=== PATIENT | female | born 1965 | race Hispanic/Latino ===

== ENCOUNTER 2020-04-28 22:09 | Emergency (ER) | payer OTHER ==
[2020-04-28 23:15] LABS: #Basophils 0.1 thou/uL (0.0-0.2); #Eosinphils 0.1 thou/uL (0.0-0.7); #Lymphocytes 2.7 thou/uL (1.20-3.40); #Neutrophils 6.8 thou/uL (1.40-6.50); %Basophils 0.5 % (0.0-1.0); %Lymphocytes 25.5 % (21.0-51.0); %Monocytes 9.7 % (0.0-10.0); %Neutrophils 63.4 % (42.0-75.0); Hemoglobin 14.8 g/dL (12.0-16.0); Mean Corpuscular HGB CONC 33.7 g/dL (32.0-36.0); Mean Corpuscular Hemoglobin 30.3 pg (27.0-31.0); Mean Corpuscular Volume 89.8 fL (78.0-98.0); Mean Platelet Volume 8.8 fL (7.4-10.4); Platelet Count 231 thou/uL (130-400); RBC Distribution Width 12.3 % (11.5-14.5); White Blood Cell (WBC) Count 10.8 thou/uL (4.8-10.8)
[2020-04-28 23:32] LABS: ALT (SGPT) 54 U/L (8-55); AST (SGOT) 31 U/L (5-34); Albumin 3.9 g/dL (3.5-5.0); Alkaline Phosphatase 169 U/L (40-110); Anion Gap 14 mmol/L (10-20); BUN (Urea Nitrogen) 18 mg/dL (9.8-20.1); Bilirubin, Total 0.3 mg/dL (0.2-1.2); Calc. Creatinine Clearance 0 mL/min (70-130); Calcium 8.8 mg/dL (7.8-10.44); Carbon Dioxide 26 mmol/L (22-29); Chloride 103 mmol/L (98-107); Globulin 3.8 g/dL (2.4-3.5); Glucose 120 mg/dL (70-105); Lipase 25 U/L (8-78); Potassium 4.6 mmol/L (3.5-5.1); Protein, Total 7.7 g/dL (6.0-8.3); Sodium 138 mmol/L (136-145)
[2020-04-29] MEDS ORDERED: Lidocaine Viscous Sol 2% 15 ml UD Cup ONE (01:12)
[2020-04-29] MEDS ORDERED: Mag-Al 1200 mg/1200 mg/30 ML UDCUP ONE (01:12)
[2020-04-29 01:15] LABS: Bacteria/HPF None Seen HPF (None Seen); Bilirubin Negative (Negative); Blood, Urine Negative (Negative); Calcium Oxalate Crystals 4+ HPF (None Seen); Clarity Turbid (Clear); Glucose, Urine (Dipstick) Normal (Negative); Ketone, Urine Negative (Negative); Leukocyte Negative Leu/uL (Negative); Mucous/LPF 1+ LPF (<2+); Nitrite Negative (Negative); Protein, Urine (Dipstick) 30 mg/dL (Neg-Trace); RBC/HPF 0-3 HPF (0-3); Specific Gravity, Urine 1.034 (1.002-1.036); WBC/HPF 0-3 HPF (0-3); pH, Urine 6.5 (5.0-9.0)
[2020-04-29] MEDS ORDERED: Pantoprazole 40 MG VIAL ONE (02:21)
[2020-04-29] MEDS ORDERED: Sucralfate 1 GM/10 ML UDCUP ONE (03:28)
--- NOTE | 2020-04-29 08:03 | CT ---
PRELIMINARY REPORT/DIRECT RADIOLOGY/EMERGENCY AFTER HOURS PROCEDURE: EXAM: CT Abdomen and Pelvis with Intravenous Contrast CLINICAL HISTORY: The patient reports that over the past several months she has had intermittent pain in her epigastric and left upper quadrant. She was seen by her primary care provider for this and states that she also saw GI. She reports associated nausea and vomiting today. She states that the pa in occasionally radiates through to her back. TECHNIQUE: Axial computed tomography images of the abdomen and pelvis with intravenous contrast. CONTRAST: With; ISOVUE 370,80mL COMPARISON: None provided. FINDINGS: LUNG BASES: No basilar airspace consolidation or pleural effusion. LIVER: Diffuse decreased parenchymal attenuation of the liver GALLBLADDER AND BILE DUCTS: Surgically absent. No ductal dilation. PANCREAS: Unremarkable. SPLEEN: Unremarkable. ADRENAL GLANDS: Unremarkable. KIDNEYS, URETERS, AND BLADDER: Unremarkable. No hydronephrosis or nephrolithiasis. No ureteral or ketty dder calculi. STOMACH AND BOWEL: No obstruction. No wall thickening. No CT evidence of colitis or acute diverticuli tis. APPENDIX: No CT evidence for appendicitis. PERITONEUM: No free fluid. No free air. LYMPH NODES: No lymphadenopathy. REPRODUCTIVE: Uterus is surgically absent. No suspicious adnexal mass. VASCULATURE: No aortic aneurysm. BONES: No fracture or suspicious osseous abnormality. ABDOMINAL WALL AND SOFT TISSUES: Unremarkable. IMPRESSION: 1. No acute intra-abdominal or pelvic abnormality. 2. Hepatic steatosis. ELECTRONICALLY SIGNED BY: Spencer Tucker DO Apr 29, 2020 3:03:04 AM [employer]LE[employer] ADJUSTER FINAL REPORT CT ABDOMEN AND PELVIS WITH CONTRAST: History: Abdominal pain. Comparison: Abdomen pelvis CT March 2020. Findings/impression: Concordant with the initial report. Transcribed Date/Time: 04/29/2020 8:13 AM
[2020-04-29] MEDS ORDERED: Iopamidol-370 76% 500 ML 1 ML ONE (10:54)
== END 2020-04-29 03:36 | disposition home or self-care (01) ==
LOC: ERS 22:09
DX: R10.13 Epigastric pain (principal); J45.909 Unspecified asthma, uncomplicated; G47.30 Sleep apnea, unspecified; Z79.899 Other long term (current) drug therapy
CPT/HCPCS: 36415; 74177; 80053; 81003; 81015; 83690; 85025; 96374; C9113; Q9967

== ENCOUNTER 2020-06-08 13:15 | Inpatient (IN) | payer OTHER ==
[2020-06-08] MEDS ORDERED: Fentanyl 100 MCG/2 ML VIAL ONE (13:18)
[2020-06-08] MEDS ORDERED: Promethazine HCl 25 MG/ML VIAL IM PRN (13:46)
[2020-06-08] MEDS ORDERED: Promethazine 25 MG TAB PO PRN (13:46)
[2020-06-08] MEDS ORDERED: Milk Of Magnesia 30 ML UDCUP PO PRN (13:46)
[2020-06-08] MEDS ORDERED: diphenhydrAMINE 50 MG CAP PO PRN (13:46)
[2020-06-08] MEDS ORDERED: Docusate 100 MG CAP PO PRN (13:46)
[2020-06-08 13:52] LABS: #Basophils 0.1 thou/uL (0.0-0.2); #Eosinphils 0.1 thou/uL (0.0-0.7); #Lymphocytes 2.6 thou/uL (1.20-3.40); #Monocytes 0.6 thou/uL (0.11-0.59); #Neutrophils 3.2 thou/uL (1.40-6.50); %Basophils 1.2 % (0.0-1.0); %Eosinophils 2.1 % (0.0-10.0); %Lymphocytes 38.8 % (21.0-51.0); %Monocytes 9.5 % (0.0-10.0); %Neutrophils 48.4 % (42.0-75.0); Hemoglobin 13.6 g/dL (12.0-16.0); Mean Corpuscular HGB CONC 33.5 g/dL (32.0-36.0); Mean Corpuscular Hemoglobin 30.6 pg (27.0-31.0); Mean Corpuscular Volume 91.4 fL (78.0-98.0); Mean Platelet Volume 8.1 fL (7.4-10.4); Platelet Count 171 thou/uL (130-400); RBC Distribution Width 12.5 % (11.5-14.5); Red Blood Cell (RBC) Count 4.43 mill/uL (4.20-5.40); White Blood Cell (WBC) Count 6.6 thou/uL (4.8-10.8)
[2020-06-08] MEDS ORDERED: Iopamidol-370 76% 500 ML 1 ML ONE (13:53)
[2020-06-08] MEDS ORDERED: levETIRAcetam 500 MG/100 ML PREMIX BAG ONE ×2 (13:58)
[2020-06-08 14:00] LABS: Prothrombin Time 13.5 sec (12.0-14.7)
[2020-06-08] MEDS ORDERED: niMODipine 30 MG CAP PO SCH (14:00)
[2020-06-08] MEDS ORDERED: Ondansetron PF 4 MG/2 ML Vial ONE ×2 (14:05→18:23)
[2020-06-08 14:06] LABS: ALT (SGPT) 28 U/L (8-55); AST (SGOT) 22 U/L (5-34); Albumin 3.6 g/dL (3.5-5.0); Alkaline Phosphatase 99 U/L (40-110); Anion Gap 12 mmol/L (10-20); BUN (Urea Nitrogen) 15 mg/dL (9.8-20.1); Bilirubin, Total 0.3 mg/dL (0.2-1.2); CK (CPK) 46 U/L (29-168); Calc. Creatinine Clearance 0 mL/min (70-130); Calcium 8.5 mg/dL (7.8-10.44); Carbon Dioxide 25 mmol/L (22-29); Chloride 102 mmol/L (98-107); Globulin 3.2 g/dL (2.4-3.5); Glucose 85 mg/dL (70-105); Protein, Total 6.8 g/dL (6.0-8.3); Sodium 135 mmol/L (136-145)
[2020-06-08 14:37] LABS: SARS-CoV-2 NAA Rapid Test Not Detected (NotDetected)
[2020-06-08] MEDS ORDERED: Promethazine HCl 25 MG/ML VIAL ONE (15:24)
[2020-06-08] MEDS ORDERED: Famotidine/PF 20 mg/2ml Vial ONE (19:51)
[2020-06-08] MEDS: Sodium Chloride 0.9% 1,000 ML IV SCH (20:00)
[2020-06-08] MEDS ORDERED: Acetaminophen 325 MG TAB ONE (20:10)
[2020-06-08] MEDS: Famotidine/PF 20 mg/2ml Vial SLOW IVP SCH (20:23)
[2020-06-08] MEDS: niMODipine 30 MG CAP PO SCH ×2 (20:23→21:27)
[2020-06-08] MEDS: Acetaminophen 325 MG TAB PO PRN (20:24)
[2020-06-08] MEDS: levETIRAcetam 500 MG TAB PO SCH (20:24)
[2020-06-08] MEDS ORDERED: CEFAZOLIN 2 GM in Premix Bag 1 BAG IVPB SCH (20:45)
[2020-06-09] MEDS ORDERED: Ondansetron PF 4 MG/2 ML Vial ONE
[2020-06-09] MEDS: Ondansetron PF 4 MG/2 ML Vial IVP PRN ×4 (00:49→21:06)
[2020-06-09] MEDS: niMODipine 30 MG CAP PO SCH ×6 (02:11→21:06)
[2020-06-09] MEDS: Acetaminophen 325 MG TAB PO PRN (02:11)
[2020-06-09] MEDS: hydrALAZINE 20 MG/ML VIAL SLOW IVP PRN (02:30)
[2020-06-09] MEDS: Morphine 4 MG/ML VIAL SLOW IVP PRN ×6 (04:12→21:06)
[2020-06-09 04:33] LABS: Anion Gap 15 mmol/L (10-20); BUN (Urea Nitrogen) 9 mg/dL (9.8-20.1); Calc. Creatinine Clearance 160 mL/min (70-130); Calcium 8.9 mg/dL (7.8-10.44); Carbon Dioxide 24 mmol/L (22-29); Chloride 101 mmol/L (98-107); Glucose 115 mg/dL (70-105); Potassium 3.9 mmol/L (3.5-5.1); Sodium 136 mmol/L (136-145)
[2020-06-09] MEDS: Sodium Chloride 0.9% 1,000 ML IV SCH ×2 (05:04→17:17)
[2020-06-09 05:24] LABS: #Lymphocytes 1.5 thou/uL (1.20-3.40); #Monocytes 0.6 thou/uL (0.11-0.59); #Neutrophils 7.3 thou/uL (1.40-6.50); %Basophils 0.2 % (0.0-1.0); %Eosinophils 0.3 % (0.0-10.0); %Lymphocytes 16.1 % (21.0-51.0); %Monocytes 5.8 % (0.0-10.0); %Neutrophils 77.5 % (42.0-75.0); Hemoglobin 13.7 g/dL (12.0-16.0); Mean Corpuscular HGB CONC 32.7 g/dL (32.0-36.0); Mean Corpuscular Hemoglobin 29.3 pg (27.0-31.0); Mean Corpuscular Volume 89.6 fL (78.0-98.0); Mean Platelet Volume 7.9 fL (7.4-10.4); Platelet Count 189 thou/uL (130-400); RBC Distribution Width 12.4 % (11.5-14.5); Red Blood Cell (RBC) Count 4.68 mill/uL (4.20-5.40); White Blood Cell (WBC) Count 9.4 thou/uL (4.8-10.8)
[2020-06-09 05:30] LABS: PTT 32.7 sec (22.9-36.1); Prothrombin Time 13.4 sec (12.0-14.7)
[2020-06-09] MEDS: Famotidine/PF 20 mg/2ml Vial SLOW IVP SCH ×2 (07:59→21:06)
[2020-06-09] MEDS: levETIRAcetam 500 MG TAB PO SCH ×2 (08:09→21:06)
[2020-06-09] MEDS ORDERED: Prevnar 13-Val Conj/PF 0.5 ML SYRINGE IM ONE (09:00)
[2020-06-09] MEDS: Promethazine HCl 25 MG/ML VIAL IM/IV PRN ×2 (15:25→23:30)
[2020-06-10] MEDS: Morphine 4 MG/ML VIAL SLOW IVP PRN ×8 (01:35→22:07)
[2020-06-10] MEDS: diphenhydrAMINE 50 MG/ML VIAL IVP PRN (01:36)
[2020-06-10] MEDS: niMODipine 30 MG CAP PO SCH ×6 (01:36→20:08)
[2020-06-10 04:10] LABS: #Lymphocytes 1.6 thou/uL (1.20-3.40); #Monocytes 0.6 thou/uL (0.11-0.59); #Neutrophils 6.4 thou/uL (1.40-6.50); %Basophils 0.4 % (0.0-1.0); %Eosinophils 0.5 % (0.0-10.0); %Lymphocytes 18.2 % (21.0-51.0); %Monocytes 6.7 % (0.0-10.0); %Neutrophils 74.2 % (42.0-75.0); Hemoglobin 14.3 g/dL (12.0-16.0); Mean Corpuscular HGB CONC 34.3 g/dL (32.0-36.0); Mean Corpuscular Volume 90.4 fL (78.0-98.0); Mean Platelet Volume 8.5 fL (7.4-10.4); Platelet Count 198 thou/uL (130-400); RBC Distribution Width 12.3 % (11.5-14.5); Red Blood Cell (RBC) Count 4.62 mill/uL (4.20-5.40); White Blood Cell (WBC) Count 8.6 thou/uL (4.8-10.8)
[2020-06-10 04:37] LABS: Anion Gap 13 mmol/L (10-20); BUN (Urea Nitrogen) 12 mg/dL (9.8-20.1); Calc. Creatinine Clearance 166 mL/min (70-130); Calcium 8.7 mg/dL (7.8-10.44); Carbon Dioxide 26 mmol/L (22-29); Cardiac Risk 5.2 (Less than 4.5); Chloride 102 mmol/L (98-107); Cholesterol 203 mg/dl (< 200 Desired); Glucose 112 mg/dL (70-105); HDL Cholesterol 39 mg/dL (>60 Neg Risk); LDL Cholesterol, Calculated 145 mg/dL; Potassium 3.7 mmol/L (3.5-5.1); Sodium 137 mmol/L (136-145); Triglycerides 96 mg/dL (Less than 150)
[2020-06-10] MEDS: hydrALAZINE 20 MG/ML VIAL SLOW IVP PRN ×5 (05:53→14:21)
[2020-06-10] MEDS: Sodium Chloride 0.9% 1,000 ML IV SCH ×2 (05:53→20:07)
[2020-06-10] MEDS: Promethazine HCl 25 MG/ML VIAL IM/IV PRN ×2 (07:31→19:09)
[2020-06-10] MEDS: Famotidine/PF 20 mg/2ml Vial SLOW IVP SCH ×2 (09:07→20:09)
[2020-06-10] MEDS: levETIRAcetam 500 MG TAB PO SCH ×2 (09:09→20:08)
[2020-06-10] MEDS ORDERED: Fentanyl 100 MCG/2 ML VIAL SLOW IVP PRN (10:07)
[2020-06-10] MEDS ORDERED: Fentanyl 100 MCG/2 ML VIAL SLOW IVP SCH (10:09)
[2020-06-10] MEDS: Ondansetron PF 4 MG/2 ML Vial IVP PRN ×2 (11:10→23:35)
[2020-06-10] MEDS ORDERED: HYDROcodone/Acetaminophen 5/325 mg Tablet PO PRN (11:27)
[2020-06-10] MEDS: Metoclopramide HCl 10 MG/2 ML VIAL IVP PRN ×2 (11:52→21:33)
[2020-06-10] MEDS: HYDROcodone/Acetaminophen 5/325 mg Tablet PO PRN ×3 (11:53→21:33)
[2020-06-10] MEDS ORDERED: Lisinopril 5 MG TAB PO SCH (12:00)
[2020-06-10] MEDS: niCARdipine 25 MG in Sodium Chloride 0.9% 250 ML 240 ML IVPB SCH ×2 (15:56→21:47)
[2020-06-10 18:19] LABS: Bacteria/HPF None Seen HPF (None Seen); Bilirubin Negative (Negative); Blood, Urine Negative (Negative); Clarity Clear (Clear); Glucose, Urine (Dipstick) Normal (Negative); Ketone, Urine 10 mg/dL (Negative); Leukocyte Negative Leu/uL (Negative); Nitrite Negative (Negative); Protein, Urine (Dipstick) Negative (Neg-Trace); RBC/HPF 0-3 HPF (0-3); Specific Gravity, Urine 1.016 (1.002-1.036); Squamous Epithelial 0-3 HPF (0-3); Urobilinogen Normal mg/dL (Less than 2); WBC/HPF 0-3 HPF (0-3)
[2020-06-11] MEDS: niMODipine 30 MG CAP PO SCH ×7 (00:03→20:38)
[2020-06-11] MEDS: Labetalol HCl 100 MG/20 ML VIAL SLOW IVP PRN (00:35)
[2020-06-11] MEDS: HYDROcodone/Acetaminophen 5/325 mg Tablet PO PRN ×3 (02:31→20:38)
[2020-06-11] MEDS: Morphine 4 MG/ML VIAL SLOW IVP PRN ×8 (03:47→21:06)
[2020-06-11] MEDS: Metoclopramide HCl 10 MG/2 ML VIAL IVP PRN ×2 (03:47→20:38)
[2020-06-11 04:07] LABS: #Lymphocytes 1.3 thou/uL (1.20-3.40); #Monocytes 0.7 thou/uL (0.11-0.59); #Neutrophils 8.8 thou/uL (1.40-6.50); %Basophils 0.4 % (0.0-1.0); %Eosinophils 0.4 % (0.0-10.0); %Lymphocytes 12.2 % (21.0-51.0); %Monocytes 6.5 % (0.0-10.0); %Neutrophils 80.5 % (42.0-75.0); Hemoglobin 13.7 g/dL (12.0-16.0); Mean Corpuscular HGB CONC 32.5 g/dL (32.0-36.0); Mean Corpuscular Hemoglobin 29.4 pg (27.0-31.0); Mean Corpuscular Volume 90.4 fL (78.0-98.0); Mean Platelet Volume 8.1 fL (7.4-10.4); Platelet Count 173 thou/uL (130-400); RBC Distribution Width 12.4 % (11.5-14.5); Red Blood Cell (RBC) Count 4.65 mill/uL (4.20-5.40); White Blood Cell (WBC) Count 10.9 thou/uL (4.8-10.8)
[2020-06-11] MEDS: niCARdipine 25 MG in Sodium Chloride 0.9% 250 ML 240 ML IVPB SCH ×2 (04:12→13:32)
[2020-06-11 04:21] LABS: Anion Gap 13 mmol/L (10-20); BUN (Urea Nitrogen) 9 mg/dL (9.8-20.1); Calc. Creatinine Clearance 201 mL/min (70-130); Calcium 8.4 mg/dL (7.8-10.44); Carbon Dioxide 28 mmol/L (22-29); Chloride 95 mmol/L (98-107); Glucose 135 mg/dL (70-105); Potassium 3.5 mmol/L (3.5-5.1); Sodium 132 mmol/L (136-145)
[2020-06-11] MEDS: Sodium Chloride 0.9% 1,000 ML IV SCH (05:21)
[2020-06-11] MEDS: levETIRAcetam 500 MG TAB PO SCH ×2 (08:29→20:39)
[2020-06-11] MEDS: Famotidine/PF 20 mg/2ml Vial SLOW IVP SCH ×2 (08:29→20:38)
[2020-06-11] MEDS: Lisinopril 5 MG TAB PO SCH (11:37)
[2020-06-11] MEDS: STERILE WATER IV SCH (11:39)
[2020-06-11] MEDS: SODIUM CHLORIDE IV SCH (11:39)
[2020-06-11] MEDS: Ondansetron PF 4 MG/2 ML Vial IVP PRN (13:32)
[2020-06-11] MEDS: diphenhydrAMINE 50 MG/ML VIAL IVP PRN ×2 (14:52→22:56)
[2020-06-11 22:45] LABS: Anion Gap 10 mmol/L (10-20); BUN (Urea Nitrogen) 11 mg/dL (9.8-20.1); Calc. Creatinine Clearance 187 mL/min (70-130); Calcium 8.2 mg/dL (7.8-10.44); Carbon Dioxide 29 mmol/L (22-29); Chloride 98 mmol/L (98-107); Glucose 128 mg/dL (70-105); Potassium 3.6 mmol/L (3.5-5.1); Sodium 133 mmol/L (136-145)
[2020-06-12] MEDS: STERILE WATER IV SCH ×2 (00:06→10:34)
[2020-06-12] MEDS: SODIUM CHLORIDE IV SCH ×2 (00:06→10:34)
[2020-06-12] MEDS: HYDROcodone/Acetaminophen 5/325 mg Tablet PO PRN ×2 (00:42→08:06)
[2020-06-12] MEDS: niCARdipine 25 MG in Sodium Chloride 0.9% 250 ML 240 ML IVPB SCH ×4 (00:42→22:21)
[2020-06-12] MEDS: niMODipine 30 MG CAP PO SCH ×6 (00:42→20:33)
[2020-06-12] MEDS: Ondansetron PF 4 MG/2 ML Vial IVP PRN ×2 (01:59→08:14)
[2020-06-12] MEDS: Morphine 4 MG/ML VIAL SLOW IVP PRN ×6 (01:59→13:25)
[2020-06-12 04:17] LABS: #Lymphocytes 1.3 thou/uL (1.20-3.40); #Monocytes 0.8 thou/uL (0.11-0.59); #Neutrophils 7.9 thou/uL (1.40-6.50); %Basophils 0.4 % (0.0-1.0); %Eosinophils 0.2 % (0.0-10.0); %Lymphocytes 12.7 % (21.0-51.0); %Monocytes 8.1 % (0.0-10.0); %Neutrophils 78.6 % (42.0-75.0); Hemoglobin 13.2 g/dL (12.0-16.0); Mean Corpuscular HGB CONC 32.6 g/dL (32.0-36.0); Mean Corpuscular Hemoglobin 29.6 pg (27.0-31.0); Mean Platelet Volume 7.9 fL (7.4-10.4); Platelet Count 185 thou/uL (130-400); RBC Distribution Width 12.3 % (11.5-14.5); Red Blood Cell (RBC) Count 4.44 mill/uL (4.20-5.40)
[2020-06-12 04:37] LABS: Anion Gap 9 mmol/L (10-20); BUN (Urea Nitrogen) 12 mg/dL (9.8-20.1); Calc. Creatinine Clearance 184 mL/min (70-130); Calcium 8.1 mg/dL (7.8-10.44); Carbon Dioxide 33 mmol/L (22-29); Chloride 98 mmol/L (98-107); Glucose 115 mg/dL (70-105); Potassium 3.6 mmol/L (3.5-5.1); Sodium 136 mmol/L (136-145)
[2020-06-12] MEDS ORDERED: Sodium Chloride 0.9% (PF) 10 ML VIAL FS PRN (06:30)
[2020-06-12] MEDS: levETIRAcetam 500 MG TAB PO SCH ×2 (08:07→20:33)
[2020-06-12] MEDS: Pantoprazole 40 MG VIAL IVP SCH ×2 (08:08→20:34)
[2020-06-12] MEDS ORDERED: Iopamidol 370 76% 50 ML VIAL FS ONE (08:56)
[2020-06-12] MEDS ORDERED: Heparin 10,000 UNITS/ 10 ML VIAL ONE (09:31)
[2020-06-12] MEDS ORDERED: Fentanyl 100 MCG/2 ML VIAL ONE (11:00)
[2020-06-12] MEDS: Lisinopril 5 MG TAB PO SCH (11:28)
[2020-06-12] MEDS: Lorazepam 2 MG/ML VIAL SLOW IVP PRN (15:08)
[2020-06-12 15:34] LABS: Sodium 137 mmol/L (136-145)
[2020-06-12] MEDS: hydrALAZINE 20 MG/ML VIAL SLOW IVP PRN (18:05)
[2020-06-12] MEDS: hydrALAZINE 25 MG TAB PO SCH (20:33)
[2020-06-12] MEDS: Acetaminophen 325 MG TAB PO PRN (21:52)
[2020-06-13] MEDS: SODIUM CHLORIDE IV SCH (01:29)
[2020-06-13] MEDS: STERILE WATER IV SCH (01:29)
[2020-06-13] MEDS: niMODipine 30 MG CAP PO SCH ×6 (01:34→20:04)
[2020-06-13] MEDS: niCARdipine 25 MG in Sodium Chloride 0.9% 250 ML 240 ML IVPB SCH ×5 (04:01→19:58)
[2020-06-13 04:13] LABS: Anion Gap 14 mmol/L (10-20); BUN (Urea Nitrogen) 13 mg/dL (9.8-20.1); Calc. Creatinine Clearance 183 mL/min (70-130); Calcium 8.3 mg/dL (7.8-10.44); Carbon Dioxide 29 mmol/L (22-29); Chloride 100 mmol/L (98-107); Glucose 109 mg/dL (70-105); Sodium 140 mmol/L (136-145)
[2020-06-13 04:23] LABS: Potassium 2.9 mmol/L (3.5-5.1)
[2020-06-13] MEDS ORDERED: Potassium Chloride 40 MEQ in Premix Bag 1 BAG IVPB SCH (05:15)
[2020-06-13] MEDS: Ondansetron PF 4 MG/2 ML Vial IVP PRN (05:23)
[2020-06-13 07:44] LABS: Bacteria/HPF None Seen HPF (None Seen); Bilirubin Negative (Negative); Blood, Urine 3+ (Negative); Clarity Clear (Clear); Glucose, Urine (Dipstick) Normal (Negative); Ketone, Urine Greater than 150 mg/dL (Negative); Leukocyte 25 Leu/uL (Negative); Nitrite Negative (Negative); Protein, Urine (Dipstick) 20 mg/dL (Neg-Trace); RBC/HPF Greater than 50 HPF (0-3); Squamous Epithelial None Seen HPF (0-3)
[2020-06-13] MEDS: hydrALAZINE 25 MG TAB PO SCH ×3 (08:45→20:05)
[2020-06-13] MEDS: levETIRAcetam 500 MG TAB PO SCH ×2 (08:45→20:05)
[2020-06-13] MEDS: Promethazine HCl 25 MG/ML VIAL IM/IV PRN (08:48)
[2020-06-13] MEDS: Pantoprazole 40 MG VIAL IVP SCH ×2 (08:49→20:06)
[2020-06-13] MEDS: Labetalol HCl 100 MG/20 ML VIAL SLOW IVP PRN (09:36)
[2020-06-13] MEDS: Acetaminophen 325 MG TAB PO PRN ×2 (09:44→20:08)
[2020-06-13] MEDS: Lorazepam 2 MG/ML VIAL SLOW IVP PRN (09:50)
[2020-06-13] MEDS: Lisinopril 5 MG TAB PO SCH (11:35)
[2020-06-13] MEDS ORDERED: Morphine 4 MG/ML VIAL SLOW IVP PRN (12:46)
[2020-06-13] MEDS ORDERED: Lorazepam 2 MG/ML VIAL SLOW IVP PRN (12:46)
[2020-06-13 15:18] LABS: Sodium 142 mmol/L (136-145)
[2020-06-13] MEDS: cefTRIAXone\\ROCEPHIN 2 GM in Sodium Chloride 0.9% 100 ML IVPB SCH (15:32)
[2020-06-13] MEDS: Metoclopramide HCl 10 MG/2 ML VIAL IVP PRN (20:29)
[2020-06-14] MEDS: niCARdipine 25 MG in Sodium Chloride 0.9% 250 ML 240 ML IVPB SCH (00:47)
[2020-06-14] MEDS: niMODipine 30 MG CAP PO SCH ×6 (00:47→21:38)
[2020-06-14] MEDS: HYDROcodone/Acetaminophen 5/325 mg Tablet PO PRN ×2 (01:38→21:39)
[2020-06-14 04:07] LABS: #Basophils 0.1 thou/uL (0.0-0.2); #Eosinphils 0.1 thou/uL (0.0-0.7); #Lymphocytes 2.9 thou/uL (1.20-3.40); #Monocytes 1.4 thou/uL (0.11-0.59); #Neutrophils 10.9 thou/uL (1.40-6.50); %Basophils 0.8 % (0.0-1.0); %Eosinophils 0.3 % (0.0-10.0); %Lymphocytes 18.9 % (21.0-51.0); %Monocytes 9.2 % (0.0-10.0); %Neutrophils 70.9 % (42.0-75.0); Hemoglobin 12.9 g/dL (12.0-16.0); Mean Corpuscular HGB CONC 32.2 g/dL (32.0-36.0); Mean Corpuscular Hemoglobin 29.9 pg (27.0-31.0); Mean Corpuscular Volume 92.7 fL (78.0-98.0); Mean Platelet Volume 7.9 fL (7.4-10.4); Platelet Count 235 thou/uL (130-400); RBC Distribution Width 12.3 % (11.5-14.5); Red Blood Cell (RBC) Count 4.32 mill/uL (4.20-5.40); White Blood Cell (WBC) Count 15.4 thou/uL (4.8-10.8)
[2020-06-14 04:24] LABS: Anion Gap 16 mmol/L (10-20); BUN (Urea Nitrogen) 15 mg/dL (9.8-20.1); Calc. Creatinine Clearance 179 mL/min (70-130); Calcium 8.2 mg/dL (7.8-10.44); Carbon Dioxide 23 mmol/L (22-29); Chloride 105 mmol/L (98-107); Glucose 96 mg/dL (70-105); Sodium 141 mmol/L (136-145)
[2020-06-14 04:35] LABS: Potassium 2.7 mmol/L (3.5-5.1)
[2020-06-14] MEDS ORDERED: Electrolyte Replacement Protocol 1 EACH FS PRN ×2 (05:19→21:27)
[2020-06-14] MEDS ORDERED: Potassium Chloride 20 MEQ in Premix Bag 1 BAG IVPB SCH (05:30)
[2020-06-14] MEDS: Potassium Chloride 40 MEQ in Sodium Chloride 0.9% 250 ML 250 ML IVPB SCH (08:43)
[2020-06-14] MEDS: levETIRAcetam 500 MG TAB PO SCH (10:03)
[2020-06-14] MEDS: hydrALAZINE 25 MG TAB PO SCH ×2 (10:03→15:08)
[2020-06-14] MEDS: Pantoprazole 40 MG VIAL IVP SCH (10:04)
[2020-06-14] MEDS ORDERED: VANCOMYCIN IVPB PRN ×2 (11:17→21:27)
[2020-06-14] MEDS ORDERED: VANCOMYCIN 2 GRAM/400 ML BAG 2 GM in Premix Bag 1 BAG IVPB SCH (12:00)
[2020-06-14] MEDS: cefTRIAXone\\ROCEPHIN 2 GM in Sodium Chloride 0.9% 100 ML IVPB SCH (12:53)
[2020-06-14] MEDS ORDERED: Potassium Chloride 40 MEQ in Sodium Chloride 0.9% 250 ML 250 ML IVPB SCH (13:00)
[2020-06-14] MEDS: Lisinopril 5 MG TAB PO SCH (13:12)
[2020-06-14] MEDS ORDERED: Ondansetron PF 4 MG/2 ML Vial IVP PRN (14:38)
[2020-06-14] MEDS: Acetaminophen 325 MG TAB PO PRN (14:42)
[2020-06-14 16:45] LABS: Potassium 4.4 mmol/L (3.5-5.1); Sodium 142 mmol/L (136-145)
[2020-06-14] MEDS ORDERED: Labetalol HCl 100 MG/20 ML VIAL SLOW IVP PRN (21:16)
[2020-06-14] MEDS ORDERED: Milk Of Magnesia 30 ML UDCUP PO PRN (21:16)
[2020-06-14] MEDS ORDERED: Docusate 100 MG CAP PO PRN (21:16)
[2020-06-14] MEDS ORDERED: diphenhydrAMINE 50 MG CAP PO PRN (21:16)
[2020-06-14] MEDS ORDERED: diphenhydrAMINE 50 MG/ML VIAL IVP PRN (21:17)
[2020-06-14] MEDS ORDERED: Promethazine 25 MG TAB PO PRN (21:17)
[2020-06-14] MEDS ORDERED: Promethazine HCl 25 MG/ML VIAL IM/IV PRN (21:19)
[2020-06-14] MEDS ORDERED: Metoclopramide HCl 10 MG/2 ML VIAL IVP PRN (21:24)
[2020-06-14] MEDS ORDERED: HYDROcodone/Acetaminophen 5/325 mg Tablet PO PRN (21:25)
[2020-06-14] MEDS ORDERED: Sodium Chloride 0.9% (PF) 10 ML VIAL FS PRN (21:26)
[2020-06-14] MEDS ORDERED: Lorazepam 2 MG/ML VIAL SLOW IVP PRN (21:26)
[2020-06-14] MEDS ORDERED: Morphine 4 MG/ML VIAL SLOW IVP PRN (21:26)
[2020-06-14] MEDS ORDERED: levETIRAcetam 500 MG TAB PO SCH (21:30)
[2020-06-14] MEDS ORDERED: Pantoprazole 40 MG VIAL IVP SCH (21:30)
[2020-06-14] MEDS ORDERED: niCARdipine 25 MG in Sodium Chloride 0.9% 250 ML 240 ML IVPB SCH (21:30)
[2020-06-15] MEDS: VANCOMYCIN 2 GRAM/400 ML BAG 2 GM in Premix Bag 1 BAG IVPB SCH ×2 (00:01→12:49)
[2020-06-15] MEDS: niMODipine 30 MG CAP PO SCH ×6 (01:20→19:54)
[2020-06-15] MEDS: Acetaminophen 325 MG TAB PO PRN ×3 (01:21→12:41)
[2020-06-15 04:46] LABS: Anion Gap 15 mmol/L (10-20); BUN (Urea Nitrogen) 9 mg/dL (9.8-20.1); Calc. Creatinine Clearance 200 mL/min (70-130); Calcium 7.8 mg/dL (7.8-10.44); Carbon Dioxide 21 mmol/L (22-29); Chloride 105 mmol/L (98-107); Glucose 79 mg/dL (70-105); Potassium 3.2 mmol/L (3.5-5.1); Sodium 138 mmol/L (136-145)
[2020-06-15 07:31] LABS: #Basophils 0.1 thou/uL (0.0-0.2); #Eosinphils 0.2 thou/uL (0.0-0.7); #Lymphocytes 2.5 thou/uL (1.20-3.40); #Monocytes 0.8 thou/uL (0.11-0.59); #Neutrophils 8.2 thou/uL (1.40-6.50); %Basophils 0.5 % (0.0-1.0); %Eosinophils 1.8 % (0.0-10.0); %Lymphocytes 21.1 % (21.0-51.0); %Monocytes 6.9 % (0.0-10.0); %Neutrophils 69.7 % (42.0-75.0); Hemoglobin 13.5 g/dL (12.0-16.0); Mean Corpuscular HGB CONC 32.8 g/dL (32.0-36.0); Mean Corpuscular Hemoglobin 30.2 pg (27.0-31.0); Mean Corpuscular Volume 92.3 fL (78.0-98.0); Mean Platelet Volume 7.7 fL (7.4-10.4); Platelet Count 203 thou/uL (130-400); RBC Distribution Width 12.4 % (11.5-14.5); Red Blood Cell (RBC) Count 4.45 mill/uL (4.20-5.40); White Blood Cell (WBC) Count 11.8 thou/uL (4.8-10.8)
[2020-06-15] MEDS: Potassium Chloride 20 MEQ in Premix Bag 1 BAG IVPB SCH ×2 (08:42→16:07)
[2020-06-15] MEDS: levETIRAcetam 500 MG TAB PO SCH ×2 (08:42→19:54)
[2020-06-15] MEDS: hydrALAZINE 25 MG TAB PO SCH ×3 (08:42→19:53)
[2020-06-15] MEDS ORDERED: Pantoprazole 40 MG VIAL IVP SCH (09:00)
[2020-06-15] MEDS: Sodium Chloride 0.9% 1,000 ML IV SCH ×2 (11:43→19:55)
[2020-06-15] MEDS: Lisinopril 5 MG TAB PO SCH (11:50)
[2020-06-15] MEDS: cefTRIAXone\\ROCEPHIN 2 GM in Sodium Chloride 0.9% 100 ML IVPB SCH (11:50)
[2020-06-15] MEDS: Cepastat Lozenges 1 LOZ PO PRN ×3 (12:49→20:20)
[2020-06-15 15:21] LABS: Sodium 137 mmol/L (136-145)
[2020-06-15] MEDS: HYDROcodone/Acetaminophen 5/325 mg Tablet PO PRN (19:52)
[2020-06-15] MEDS: Gabapentin 300 MG CAP PO SCH (19:53)
[2020-06-15] MEDS: hydrALAZINE 20 MG/ML VIAL SLOW IVP PRN (21:03)
[2020-06-16] MEDS: VANCOMYCIN 2 GRAM/400 ML BAG 2 GM in Premix Bag 1 BAG IVPB SCH ×2 (00:22→12:39)
[2020-06-16] MEDS: niMODipine 30 MG CAP PO SCH ×6 (00:22→21:53)
[2020-06-16] MEDS: Cepastat Lozenges 1 LOZ PO PRN ×2 (02:37→15:18)
[2020-06-16 03:56] LABS: Anion Gap 14 mmol/L (10-20); BUN (Urea Nitrogen) 7 mg/dL (9.8-20.1); Calc. Creatinine Clearance 212 mL/min (70-130); Calcium 7.9 mg/dL (7.8-10.44); Carbon Dioxide 21 mmol/L (22-29); Chloride 106 mmol/L (98-107); Glucose 81 mg/dL (70-105); Sodium 138 mmol/L (136-145)
[2020-06-16 03:58] LABS: Potassium 2.8 mmol/L (3.5-5.1)
[2020-06-16] MEDS: Sodium Chloride 0.9% 1,000 ML IV SCH (04:35)
[2020-06-16] MEDS: Potassium Chloride 20 MEQ TAB PO SCH ×3 (04:35→17:19)
[2020-06-16] MEDS: HYDROcodone/Acetaminophen 5/325 mg Tablet PO PRN ×2 (05:21→16:04)
[2020-06-16] MEDS: hydrALAZINE 20 MG/ML VIAL SLOW IVP PRN (05:53)
[2020-06-16 06:27] VITALS: BMI 45.1
[2020-06-16] MEDS: Gabapentin 300 MG CAP PO SCH ×2 (08:14→21:55)
[2020-06-16] MEDS: Amitriptyline HCl 25 MG TAB PO SCH (08:14)
[2020-06-16] MEDS: hydrALAZINE 25 MG TAB PO SCH ×3 (08:15→21:53)
[2020-06-16] MEDS: levETIRAcetam 500 MG TAB PO SCH ×2 (08:16→21:56)
[2020-06-16 12:42] LABS: Potassium 2.8 mmol/L (3.5-5.1)
[2020-06-16] MEDS: Lisinopril 5 MG TAB PO SCH (12:47)
[2020-06-16] MEDS: Potassium Chloride 40 MEQ in Sodium Chloride 0.9% 250 ML 250 ML IVPB SCH (13:18)
[2020-06-16] MEDS: STERILE WATER IV SCH (13:19)
[2020-06-16] MEDS: SODIUM CHLORIDE IV SCH (13:19)
[2020-06-16] MEDS ORDERED: Potassium Chloride 20 MEQ TAB PO SCH (14:30)
[2020-06-16] MEDS ORDERED: Guaifenesin DM 100-10/5 ML UDCUP PO PRN (15:03)
[2020-06-16] MEDS: cefTRIAXone\\ROCEPHIN 2 GM in Sodium Chloride 0.9% 100 ML IVPB SCH (16:03)
[2020-06-16] MEDS ORDERED: Melatonin 3 MG TAB PO SCH (21:00)
[2020-06-16] MEDS: Acetaminophen/Codeine 30-300mg Tablet PO PRN (21:54)
[2020-06-16 22:11] LABS: Potassium 3.8 mmol/L (3.5-5.1)
[2020-06-17] MEDS: VANCOMYCIN 2 GRAM/400 ML BAG 2 GM in Premix Bag 1 BAG IVPB SCH ×2 (01:40→13:18)
[2020-06-17] MEDS: niMODipine 30 MG CAP PO SCH ×6 (01:40→20:35)
[2020-06-17 05:34] LABS: Anion Gap 13 mmol/L (10-20); BUN (Urea Nitrogen) 6 mg/dL (9.8-20.1); Calc. Creatinine Clearance 194 mL/min (70-130); Calcium 8.3 mg/dL (7.8-10.44); Carbon Dioxide 20 mmol/L (22-29); Chloride 108 mmol/L (98-107); Glucose 99 mg/dL (70-105); Potassium 3.6 mmol/L (3.5-5.1); Sodium 137 mmol/L (136-145)
[2020-06-17] MEDS: Gabapentin 300 MG CAP PO SCH ×2 (08:33→20:35)
[2020-06-17] MEDS: Potassium Chloride 20 MEQ TAB PO SCH ×2 (08:34→16:12)
[2020-06-17] MEDS: levETIRAcetam 500 MG TAB PO SCH ×2 (08:34→20:39)
[2020-06-17] MEDS: hydrALAZINE 25 MG TAB PO SCH ×3 (08:35→20:39)
[2020-06-17] MEDS: Amitriptyline HCl 25 MG TAB PO SCH (08:35)
[2020-06-17] MEDS: Acetaminophen/Codeine 30-300mg Tablet PO PRN (13:15)
[2020-06-17] MEDS: Lisinopril 5 MG TAB PO SCH (13:16)
[2020-06-17] MEDS: cefTRIAXone\\ROCEPHIN 2 GM in Sodium Chloride 0.9% 100 ML IVPB SCH (16:12)
[2020-06-17] MEDS: HYDROcodone/Acetaminophen 5/325 mg Tablet PO PRN (20:36)
[2020-06-17 23:13] LABS: Vancomycin, Trough 16.2 ug/mL
[2020-06-17] MEDS ORDERED: Melatonin 3 MG TAB PO PRN (23:40)
[2020-06-18] MEDS: niMODipine 30 MG CAP PO SCH ×3 (00:02→08:31)
[2020-06-18 05:09] LABS: Anion Gap 12 mmol/L (10-20); BUN (Urea Nitrogen) 8 mg/dL (9.8-20.1); Calc. Creatinine Clearance 174 mL/min (70-130); Calcium 8.6 mg/dL (7.8-10.44); Carbon Dioxide 23 mmol/L (22-29); Chloride 107 mmol/L (98-107); Glucose 104 mg/dL (70-105); Potassium 3.8 mmol/L (3.5-5.1); Sodium 138 mmol/L (136-145)
[2020-06-18 07:59] VITALS: BP 128/66; TEMP 97.6
[2020-06-18] MEDS: Gabapentin 300 MG CAP PO SCH (08:32)
[2020-06-18] MEDS: hydrALAZINE 25 MG TAB PO SCH (08:32)
[2020-06-18] MEDS: levETIRAcetam 500 MG TAB PO SCH (08:33)
[2020-06-18] MEDS: Amitriptyline HCl 25 MG TAB PO SCH (08:33)
[2020-06-18] MEDS: Potassium Chloride 20 MEQ TAB PO SCH (08:33)
[2020-06-18] MEDS: HYDROcodone/Acetaminophen 5/325 mg Tablet PO PRN (08:41)
[2020-06-20 22:36] LABS: Norovirus GI Negative (Negative); Norovirus GII Negative (Negative)
== END 2020-06-18 11:05 | disposition home or self-care (01) | DRG 64 ==
LOC: ERS 13:15 → ERHOLD 14:44 → CCU 06-09 01:45 → UNDODISIN 06-14 11:51 → CCU 06-14 22:01 → 2SE 06-16 10:00
PROVIDERS: ADMIT Internal Medicine; ATTEND Family Medicine
PROC: B3051ZZ Plain Radiography of Bilateral Common Carotid Arteries using Low Osmolar Contrast (ICD-10-PCS; principal; 2020-06-12)
PROC: B30N1ZZ Plain Radiography of Other Upper Arteries using Low Osmolar Contrast (ICD-10-PCS; 2020-06-12)
DX: I60.7 Nontraumatic subarachnoid hemorrhage from unspecified intracranial artery (principal); G93.41 Metabolic encephalopathy; Z68.42 Body mass index [BMI] 45.0-49.9, adult; E87.1 Hypo-osmolality and hyponatremia; G91.9 Hydrocephalus, unspecified; Z20.822 Contact with and (suspected) exposure to COVID-19; J45.909 Unspecified asthma, uncomplicated; G47.33 Obstructive sleep apnea (adult) (pediatric); M79.7 Fibromyalgia; M54.9 Dorsalgia, unspecified; G89.29 Other chronic pain; R47.81 Slurred speech; K76.0 Fatty (change of) liver, not elsewhere classified; F41.9 Anxiety disorder, unspecified; E66.01 Morbid (severe) obesity due to excess calories; I10 Essential (primary) hypertension; D64.9 Anemia, unspecified; E87.6 Hypokalemia; Z90.49 Acquired absence of other specified parts of digestive tract; Z90.710 Acquired absence of both cervix and uterus; Z88.1 Allergy status to other antibiotic agents; Z88.6 Allergy status to analgesic agent; Z79.899 Other long term (current) drug therapy
CPT/HCPCS: 0240U; 36217; 36223; 36224; 36415; 36416; 70450; 70496; 70498; 71045; 80048; 80053; 80061; 80202; 81001; 82550; 83935; 84295; 84300; 84484; 85025; 85610; 85730; 87040; 87045; 87046; 87086; 87324; 87427; 87449; 87798; 93005; 93306; 93970; 94660; 96365; 96367; 96375; 96376; A4217; C9113; J0360; J0696; J1200; J1644; J1953; J2060; J2270; J2405; J2550; J2765; J3010; J3370; J3480; J3490; J7050; Q9967; S0028

== ENCOUNTER 2020-07-07 13:08 | Outpatient (CLI) | payer OTHER | END 2020-07-07 13:09 | disposition home or self-care (01) | LOC: CT 13:08 | PROVIDERS: ATTEND Neurological Surgery | DX: S06.6X0A Traumatic subarachnoid hemorrhage without loss of consciousness, initial encounter (principal); G93.89 Other specified disorders of brain | CPT/HCPCS: 70450 ==

== ENCOUNTER 2020-08-24 06:56 | Day surgery (SDC) | payer OTHER ==
[2020-08-21 10:39] VITALS: BMI 43.6
[2020-08-24 09:43] VITALS: BP 122/75; TEMP 97.2
== END 2020-08-24 10:20 | disposition home or self-care (01) ==
LOC: RAD 06:56
PROVIDERS: ATTEND Neurological Surgery
PROC: 00JU3ZZ Inspection of Spinal Canal, Percutaneous Approach (ICD-10-PCS; principal; 2020-08-24)
DX: G91.9 Hydrocephalus, unspecified (principal); G89.29 Other chronic pain; M54.9 Dorsalgia, unspecified; J45.909 Unspecified asthma, uncomplicated; G47.30 Sleep apnea, unspecified; K76.0 Fatty (change of) liver, not elsewhere classified; Z88.1 Allergy status to other antibiotic agents; Z88.6 Allergy status to analgesic agent
CPT/HCPCS: 62270

== ENCOUNTER 2020-09-18 23:29 | Observation (INO) | payer OTHER ==
[2020-09-19] MEDS ORDERED: Morphine 2 MG/ML VIAL ONE (00:14)
[2020-09-19] MEDS ORDERED: Ondansetron PF 4 MG/2 ML Vial ONE (00:18)
[2020-09-19 00:44] LABS: #Basophils 0.1 thou/uL (0.0-0.2); #Eosinphils 0.2 thou/uL (0.0-0.7); #Lymphocytes 2.3 thou/uL (1.20-3.40); #Monocytes 0.6 thou/uL (0.11-0.59); #Neutrophils 4.3 thou/uL (1.40-6.50); %Basophils 1.2 % (0.0-1.0); %Eosinophils 3.3 % (0.0-10.0); %Lymphocytes 30.1 % (21.0-51.0); %Neutrophils 57.5 % (42.0-75.0); Hemoglobin 13.1 g/dL (12.0-16.0); Mean Corpuscular HGB CONC 34.9 g/dL (32.0-36.0); Mean Corpuscular Hemoglobin 30.8 pg (27.0-31.0); Mean Corpuscular Volume 88.2 fL (78.0-98.0); Mean Platelet Volume 8.3 fL (7.4-10.4); Platelet Count 183 thou/uL (130-400); RBC Distribution Width 11.7 % (11.5-14.5); Red Blood Cell (RBC) Count 4.25 mill/uL (4.20-5.40); White Blood Cell (WBC) Count 7.5 thou/uL (4.8-10.8)
[2020-09-19 00:55] LABS: BHCG - Serum Negative (NEGATIVE); Pregs Control Background? CLEAR/WHITE (CLR/WHITE); Pregs Control Bar Appear? YES (CONTROL BAR)
[2020-09-19 00:57] LABS: ALT (SGPT) 27 U/L (8-55); AST (SGOT) 22 U/L (5-34); Acetaminophen Less than 6.0 mcg/mL (10.0-30.0); Albumin 3.8 g/dL (3.5-5.0); Alcohol Less than 10 mg/dL (Less than 10); Alkaline Phosphatase 98 U/L (40-110); Anion Gap 11 mmol/L (10-20); BUN (Urea Nitrogen) 10 mg/dL (9.8-20.1); Bilirubin, Total 0.3 mg/dL (0.2-1.2); Calc. Creatinine Clearance 0 mL/min (70-130); Carbon Dioxide 27 mmol/L (22-29); Chloride 105 mmol/L (98-107); Globulin 3.3 g/dL (2.4-3.5); Glucose 102 mg/dL (70-105); Potassium 3.9 mmol/L (3.5-5.1); Protein, Total 7.1 g/dL (6.0-8.3); Salicylate Less than 8.0 mg/dL (15.0-30.0); Sodium 139 mmol/L (136-145)
[2020-09-19] MEDS ORDERED: diphenhydrAMINE 50 MG/ML VIAL ONE (01:58)
[2020-09-19] MEDS ORDERED: Metoclopramide HCl 10 MG/2 ML VIAL ONE (01:58)
[2020-09-19 02:26] LABS: Bilirubin Negative (Negative); Blood, Urine Negative (Negative); Glucose, Urine (Dipstick) Negative (Negative); Ketone, Urine Negative (Negative); Leukocyte Negative (Negative); Nitrite Negative (Negative); Protein, Urine (Dipstick) Negative (Neg-Trace); Specific Gravity, Urine 1.015 (1.005-1.030); pH, Urine 7.5 (5.0-9.0)
[2020-09-19 02:46] LABS: Clarity Clear (Clear)
[2020-09-19] MEDS ORDERED: Bupivacaine 0.5% 10 ML VIAL ONE (04:05)
[2020-09-19 05:46] LABS: Color Of CSF Supernatant COLORLESS (Colorless); Tube # 2; Unspun CSF Color COLORLESS (Colorless)
[2020-09-19 06:02] LABS: CSF, Glucose 60 mg/dl (40-70); CSF, Protein 29 mg/dL (15-40)
[2020-09-19 06:15] LABS: CSF Source CSF; Clarity Clear (Clear); Tube # 4
[2020-09-19 06:20] LABS: CSF Source CSF; Clarity Clear (Clear); Tube # 1
[2020-09-19] MEDS ORDERED: Magnesium 2 GM/50 ML BAG (IN WATER) ONE (07:07)
[2020-09-19] MEDS ORDERED: Morphine 4 MG/ML VIAL ONE (07:07)
[2020-09-19 11:22] VITALS: BMI 44.3
[2020-09-19] MEDS ORDERED: Acetaminophen 650 MG Suppository PR PRN (11:31)
[2020-09-19] MEDS ORDERED: Acetaminophen 325 MG TAB PO PRN (11:31)
[2020-09-19] MEDS: hydrALAZINE 25 MG TAB PO SCH ×2 (13:01→16:32)
[2020-09-19 19:15] LABS: SARS-CoV-2 PCR by NAA Not Detected (NotDetected)
[2020-09-19] MEDS: Gabapentin 300 MG CAP PO SCH (21:18)
[2020-09-19] MEDS: Docusate 100 MG CAP PO SCH (21:18)
[2020-09-20 05:20] LABS: #Basophils 0.1 thou/uL (0.0-0.2); #Eosinphils 0.3 thou/uL (0.0-0.7); #Lymphocytes 2.2 thou/uL (1.20-3.40); #Monocytes 0.5 thou/uL (0.11-0.59); #Neutrophils 4.9 thou/uL (1.40-6.50); %Basophils 0.6 % (0.0-1.0); %Eosinophils 3.7 % (0.0-10.0); %Lymphocytes 28.2 % (21.0-51.0); %Monocytes 6.1 % (0.0-10.0); %Neutrophils 61.3 % (42.0-75.0); Hemoglobin 12.8 g/dL (12.0-16.0); Mean Corpuscular HGB CONC 34.3 g/dL (32.0-36.0); Mean Corpuscular Hemoglobin 30.6 pg (27.0-31.0); Mean Corpuscular Volume 89.3 fL (78.0-98.0); Mean Platelet Volume 8.4 fL (7.4-10.4); Platelet Count 177 thou/uL (130-400); RBC Distribution Width 11.8 % (11.5-14.5); Red Blood Cell (RBC) Count 4.19 mill/uL (4.20-5.40); White Blood Cell (WBC) Count 7.9 thou/uL (4.8-10.8)
[2020-09-20 05:41] LABS: Anion Gap 11 mmol/L (10-20); BUN (Urea Nitrogen) 9 mg/dL (9.8-20.1); Calc. Creatinine Clearance 165 mL/min (70-130); Calcium 9.1 mg/dL (7.8-10.44); Carbon Dioxide 26 mmol/L (22-29); Chloride 107 mmol/L (98-107); Glucose 105 mg/dL (70-105); Potassium 3.8 mmol/L (3.5-5.1); Sodium 140 mmol/L (136-145)
[2020-09-20] MEDS: Gabapentin 300 MG CAP PO SCH (08:53)
[2020-09-20] MEDS: hydrALAZINE 25 MG TAB PO SCH ×2 (08:53→11:40)
[2020-09-20] MEDS: Docusate 100 MG CAP PO SCH (08:54)
[2020-09-20 11:40] VITALS: BP 146/68
[2020-09-20 11:49] VITALS: TEMP 98.6
[2020-09-20] MEDS ORDERED: Lisinopril 10 MG TAB PO SCH (12:00)
== END 2020-09-20 15:30 | disposition home or self-care (01) ==
LOC: ERS 23:29 → 2SW 09-19 08:21
PROVIDERS: ADMIT Internal Medicine; ATTEND Internal Medicine
DX: G43.919 Migraine, unspecified, intractable, without status migrainosus (principal); G25.2 Other specified forms of tremor; J45.909 Unspecified asthma, uncomplicated; I10 Essential (primary) hypertension; M79.7 Fibromyalgia; E78.5 Hyperlipidemia, unspecified; G47.33 Obstructive sleep apnea (adult) (pediatric); G91.9 Hydrocephalus, unspecified; E66.01 Morbid (severe) obesity due to excess calories; Z68.41 Body mass index [BMI] 40.0-44.9, adult; Z86.69 Personal history of other diseases of the nervous system and sense organs; Z79.899 Other long term (current) drug therapy; Z88.1 Allergy status to other antibiotic agents; Z88.6 Allergy status to analgesic agent; Z20.822 Contact with and (suspected) exposure to COVID-19
CPT/HCPCS: 36415; 62270; 70450; 70551; 80048; 80053; 80307; 81003; 82945; 84157; 84703; 85025; 87070; 87205; 89051; 96365; 96367; 96375; 96376; G0378; J1200; J2270; J2405; J2765; J3475; J3490; U0003; U0005

== ENCOUNTER 2021-03-26 18:31 | Observation (INO) | payer OTHER ==
[2021-03-26] MEDS ORDERED: diphenhydrAMINE 50 MG/ML VIAL ONE (19:03)
[2021-03-26] MEDS ORDERED: Metoclopramide HCl 10 MG/2 ML VIAL ONE (19:03)
[2021-03-26 20:36] LABS: #Eosinphils 0.3 thou/uL (0.0-0.7); #Monocytes 0.5 thou/uL (0.11-0.59); %Basophils 0.6 % (0.0-1.0); %Eosinophils 4.1 % (0.0-10.0); %Lymphocytes 29.1 % (21.0-51.0); %Monocytes 7.5 % (0.0-10.0); %Neutrophils 58.7 % (42.0-75.0); Hemoglobin 13.7 g/dL (12.0-16.0); Mean Corpuscular HGB CONC 34.3 g/dL (32.0-36.0); Mean Corpuscular Hemoglobin 30.5 pg (27.0-31.0); Mean Corpuscular Volume 88.9 fL (78.0-98.0); Mean Platelet Volume 8.5 fL (7.4-10.4); Platelet Count 188 thou/uL (130-400); RBC Distribution Width 12.4 % (11.5-14.5); Red Blood Cell (RBC) Count 4.48 mill/uL (4.20-5.40); White Blood Cell (WBC) Count 6.7 thou/uL (4.8-10.8)
[2021-03-26 20:47] LABS: PTT 36.3 sec (22.9-36.1); Prothrombin Time 12.9 sec (12.0-14.7)
[2021-03-26 21:03] LABS: ALT (SGPT) 32 U/L (8-55); AST (SGOT) 25 U/L (5-34); Alkaline Phosphatase 105 U/L (40-110); Anion Gap 13 mmol/L (10-20); BUN (Urea Nitrogen) 11 mg/dL (9.8-20.1); Bilirubin, Total 0.3 mg/dL (0.2-1.2); Calc. Creatinine Clearance 0 mL/min (70-130); Calcium 9.5 mg/dL (7.8-10.44); Carbon Dioxide 28 mmol/L (22-29); Chloride 105 mmol/L (98-107); Globulin 3.9 g/dL (2.4-3.5); Glucose 106 mg/dL (70-105); Potassium 3.7 mmol/L (3.5-5.1); Protein, Total 7.9 g/dL (6.0-8.3); Sodium 142 mmol/L (136-145)
[2021-03-26] MEDS ORDERED: Acetaminophen 500 MG TAB ONE (21:06)
[2021-03-26] MEDS ORDERED: Magnesium 2 GM/50 ML BAG (IN WATER) ONE (21:46)
[2021-03-26 23:42] VITALS: BMI 45.7
[2021-03-26] MEDS ORDERED: Acetaminophen 325 MG TAB PO PRN (23:45)
[2021-03-26] MEDS ORDERED: Ondansetron ODT 4 MG TAB SL PRN (23:45)
[2021-03-26] MEDS ORDERED: Ondansetron PF 4 MG/2 ML Vial IVP PRN (23:45)
[2021-03-27] MEDS ORDERED: HYDROcodone/Acetaminophen 5/325 mg Tablet PO PRN (03:41)
[2021-03-27] MEDS ORDERED: Bisacodyl 5 MG TAB PO PRN (03:41)
[2021-03-27] MEDS ORDERED: HYDROcodone/Acetaminophen 7.5/325 mg Tablet PO PRN (03:41)
[2021-03-27] MEDS ORDERED: Senokot S 8.6-50 MG TAB PO PRN (03:41)
[2021-03-27] MEDS ORDERED: Melatonin 3 MG TAB PO PRN (03:46)
[2021-03-27] MEDS ORDERED: Fioricet 325/50/40 mg Tablet PO PRN (03:48)
[2021-03-27 05:52] LABS: #Eosinphils 0.4 thou/uL (0.0-0.7); #Lymphocytes 1.8 thou/uL (1.20-3.40); #Monocytes 0.6 thou/uL (0.11-0.59); %Basophils 0.4 % (0.0-1.0); %Eosinophils 6.2 % (0.0-10.0); %Lymphocytes 31.6 % (21.0-51.0); %Monocytes 9.5 % (0.0-10.0); %Neutrophils 52.3 % (42.0-75.0); Hemoglobin 12.8 g/dL (12.0-16.0); Mean Corpuscular HGB CONC 34.1 g/dL (32.0-36.0); Mean Corpuscular Hemoglobin 30.3 pg (27.0-31.0); Mean Platelet Volume 7.9 fL (7.4-10.4); Platelet Count 163 thou/uL (130-400); RBC Distribution Width 12.2 % (11.5-14.5); Red Blood Cell (RBC) Count 4.22 mill/uL (4.20-5.40); White Blood Cell (WBC) Count 5.7 thou/uL (4.8-10.8)
[2021-03-27 06:17] LABS: ALT (SGPT) 28 U/L (8-55); AST (SGOT) 20 U/L (5-34); Albumin 3.5 g/dL (3.5-5.0); Alkaline Phosphatase 82 U/L (40-110); Anion Gap 10 mmol/L (10-20); BUN (Urea Nitrogen) 9 mg/dL (9.8-20.1); Bilirubin, Total 0.4 mg/dL (0.2-1.2); Calc. Creatinine Clearance 157 mL/min (70-130); Calcium 8.9 mg/dL (7.8-10.44); Carbon Dioxide 26 mmol/L (22-29); Cardiac Risk 6.8 (Less than 4.5); Chloride 109 mmol/L (98-107); Cholesterol 191 mg/dl (< 200 Desired); Globulin 3.2 g/dL (2.4-3.5); Glucose 109 mg/dL (70-105); HDL Cholesterol 28 mg/dL (>60 Neg Risk); LDL Cholesterol, Calculated 127 mg/dL; Protein, Total 6.7 g/dL (6.0-8.3); Sodium 141 mmol/L (136-145); Triglycerides 180 mg/dL (Less than 150)
[2021-03-27 07:19] LABS: SARS-CoV-2 NAA Rapid Test Not Detected (NotDetected)
[2021-03-27] MEDS ORDERED: Gabapentin 300 MG CAP PO SCH (09:00)
[2021-03-27] MEDS ORDERED: Famotidine/PF 20 mg/2ml Vial SLOW IVP SCH (09:00)
[2021-03-27] MEDS: hydrALAZINE 25 MG TAB PO SCH ×3 (11:31→17:50)
[2021-03-27] MEDS ORDERED: Lisinopril 10 MG TAB PO SCH (12:00)
[2021-03-27 16:13] VITALS: TEMP 97.8
[2021-03-27 17:14] LABS: CSF Source CSF; Clarity Clear (Clear); Tube # 4
[2021-03-27 17:25] LABS: CSF, Glucose 54 mg/dl (40-70); CSF, Protein 33 mg/dL (15-40)
[2021-03-27 17:51] VITALS: BP 133/74
[2021-03-27 18:11] LABS: Color Of CSF Supernatant COLORLESS (Colorless); Tube # 1; Unspun CSF Color COLORLESS (Colorless)
== END 2021-03-27 19:30 | disposition home or self-care (01) ==
LOC: ERS 18:31 → NEURO 21:54
PROVIDERS: ADMIT Internal Medicine; ATTEND Family Medicine
PROC: 009U3ZX Drainage of Spinal Canal, Percutaneous Approach, Diagnostic (ICD-10-PCS; principal; 2021-03-27)
DX: R51.9 Headache, unspecified (principal); H53.2 Diplopia; G93.89 Other specified disorders of brain; I11.0 Hypertensive heart disease with heart failure; I50.32 Chronic diastolic (congestive) heart failure; G47.33 Obstructive sleep apnea (adult) (pediatric); M19.90 Unspecified osteoarthritis, unspecified site; J32.8 Other chronic sinusitis; J35.2 Hypertrophy of adenoids; J45.20 Mild intermittent asthma, uncomplicated; M43.6 Torticollis; H53.149 Visual discomfort, unspecified; E66.01 Morbid (severe) obesity due to excess calories; Z68.42 Body mass index [BMI] 45.0-49.9, adult; Z79.899 Other long term (current) drug therapy; Z88.1 Allergy status to other antibiotic agents; Z88.6 Allergy status to analgesic agent; Z20.822 Contact with and (suspected) exposure to COVID-19
CPT/HCPCS: 0240U; 36415; 62270; 70450; 70496; 70498; 71045; 80053; 80061; 82945; 84157; 85025; 85610; 85730; 88112; 89051; 93880; 96365; 96367; 96375; G0378; J1200; J2765; J3475; S0028

== ENCOUNTER 2021-04-12 08:50 | Outpatient (CLI) | payer OTHER | END 2021-04-12 08:51 | disposition home or self-care (01) | LOC: TBSIIMAG 08:50 | PROVIDERS: ATTEND Nurse Practitioner Family | DX: M47.26 Other spondylosis with radiculopathy, lumbar region (principal); Q76.49 Other congenital malformations of spine, not associated with scoliosis | CPT/HCPCS: 72148 ==

== ENCOUNTER 2022-03-20 08:19 | Outpatient (CLI) | payer OTHER | END 2022-03-20 08:20 | disposition home or self-care (01) | LOC: RAD 08:19 | PROVIDERS: ATTEND Internal Medicine Critical Care Medicine | DX: R06.00 Dyspnea, unspecified (principal) | CPT/HCPCS: 71046 ==

== ENCOUNTER 2022-04-25 19:30 | Outpatient (CLI) | payer OTHER | END 2022-04-25 19:31 | disposition home or self-care (01) | LOC: SLEEPLAB 19:30 | PROVIDERS: ATTEND Internal Medicine | DX: G47.33 Obstructive sleep apnea (adult) (pediatric) (principal) | CPT/HCPCS: 95811 ==

== ENCOUNTER 2022-07-29 12:27 | Outpatient (CLI) | payer OTHER ==
[2022-07-29 13:13] LABS: Hemoglobin 12.8 g/dL (12.0-15.5); Mean Corpuscular HGB CONC 32.7 g/dL (32.0-36.0); Mean Corpuscular Hemoglobin 28.6 pg (27.0-33.0); Mean Corpuscular Volume 87.7 fl (81.6-98.3); Mean Platelet Volume 10.4 fl (7.4-10.4); Platelet Count 179 10x3/uL (150-450); RBC Distribution Width 12.9 % (11.5-14.5); Red Blood Cell (RBC) Count 4.47 10x6/uL (3.90-5.03); White Blood Cell (WBC) Count 5.2 10x3/uL (3.5-10.5)
[2022-07-29 13:24] LABS: PTT 30.5 sec (22.0-33.0); Prothrombin Time 11.1 sec (9.5-12.1)
[2022-07-29 13:26] LABS: Anion Gap 11 mmol/L (10-20); BUN (Urea Nitrogen) 10 mg/dL (9.8-20.1); Calc. Creatinine Clearance 0 mL/min (70-130); Calcium 9.4 mg/dL (7.8-10.44); Carbon Dioxide 29 mmol/L (22-29); Chloride 104 mmol/L (98-107); Estimated GFR 104; Glucose 87 mg/dL (70-105); Sodium 140 mmol/L (136-145)
== END 2022-07-29 12:28 | disposition home or self-care (01) ==
LOC: LABBT 12:27
PROVIDERS: ATTEND Neurological Surgery
DX: Z01.812 Encounter for preprocedural laboratory examination (principal); G91.0 Communicating hydrocephalus
CPT/HCPCS: 80048; 85027; 85610; 85730

== ENCOUNTER 2022-07-29 12:30 | Inpatient (IN) | payer OTHER ==
[2022-07-31 08:52] VITALS: BMI 43.6
[2022-08-01] MEDS ORDERED: Neomycin-Polymyxin 1 ML AMP ONE (06:13)
[2022-08-01] MEDS ORDERED: Lidocaine 1% (PF) 30 ML VIAL ONE (06:13)
[2022-08-01] MEDS ORDERED: Thrombin 5000 UNITS/5 ML VIAL ONE (06:13)
[2022-08-01] MEDS ORDERED: Bacitracin Zinc Ointment 30 gm TUBE ONE (06:13)
[2022-08-01] MEDS ORDERED: Bupivacaine/Epinephrine 0.25% 30 ML VIAL ONE (06:13)
[2022-08-01] MEDS ORDERED: EPINEPHrine 1 MG/ML AMP ONE (06:13)
[2022-08-01] MEDS ORDERED: Vancomycin 1 GM in Premix Bag 1 BAG IVPB SCH (06:15)
[2022-08-01] MEDS ORDERED: Vancomycin HCl 20 MG, Gentamicin (PEDI) 8 MG in Sodium Chloride 0.9% 4 ML IVPB SCH (06:15)
[2022-08-01] MEDS ORDERED: VANCOMYCIN HCL FS SCH (06:30)
[2022-08-01] MEDS ORDERED: GENTAMICIN FS SCH (06:30)
[2022-08-01] MEDS ORDERED: SODIUM CHLORIDE 0.9% FS SCH (06:30)
[2022-08-01] MEDS ORDERED: fentaNYL PF 100 MCG/2 ML SYRINGE ONE (06:30)
[2022-08-01] MEDS ORDERED: Vancomycin 1 GM/200 ML (FROZEN) BAG ONE (06:48)
[2022-08-01] MEDS ORDERED: Midazolam HCl 2 mg/2 ml Vial ONE (06:50)
[2022-08-01] MEDS ORDERED: Promethazine HCl 25 MG/ML VIAL IM PRN (06:56)
[2022-08-01] MEDS ORDERED: diphenhydrAMINE 50 MG/ML VIAL IVP PRN (06:56)
[2022-08-01] MEDS ORDERED: Ondansetron PF 4 MG/2 ML Vial IVP PRN (06:56)
[2022-08-01] MEDS ORDERED: Acetaminophen 325 MG TAB PO PRN (06:56)
[2022-08-01] MEDS ORDERED: Albuterol 200 PUFF (6.7GM INHALER) INH PRN (06:59)
[2022-08-01] MEDS ORDERED: Acetaminophen/Codeine 30-300mg Tablet PO PRN (06:59)
[2022-08-01] MEDS ORDERED: Rocuronium Bromide 10 MG/ML (10ML VIAL) ONE (07:11)
[2022-08-01] MEDS ORDERED: Lidocaine 1% PF 5 ML VIAL ONE (07:11)
[2022-08-01] MEDS ORDERED: Dexamethasone 20 MG/5 ML VIAL ONE (07:11)
[2022-08-01] MEDS ORDERED: PROPOFOL 200 MG/20 ML VIAL ONE (07:11)
[2022-08-01] MEDS ORDERED: Albuterol HFA (OR) 200 PUFF INH ONE (07:11)
[2022-08-01] MEDS ORDERED: Ondansetron PF 4 MG/2 ML Vial ONE (07:11)
[2022-08-01] MEDS ORDERED: GLYCOPYRROLATE/PF 0.2 MG/ML VIAL ONE (07:11)
[2022-08-01] MEDS ORDERED: SUGAMMADEX SODIUM 200 MG/2 ML VIAL ONE (08:19)
[2022-08-01] MEDS ORDERED: Non-Formulary Item 1 EACH (Gabapentin [Gabapentin] 600 MG Tablet) PO SCH (09:00)
[2022-08-01] MEDS ORDERED: Sertraline 100 MG TAB PO SCH (09:00)
[2022-08-01] MEDS ORDERED: fentaNYL 50 mcg/mL 1 mL Vial ONE ×5 (09:05→10:05)
[2022-08-01] MEDS ORDERED: HYDROmorphone 0.5 MG/0.5 ML SYRINGE ONE ×3 (09:36→11:31)
[2022-08-01] MEDS: HYDROcodone/Acetaminophen 7.5/325 mg Tablet PO PRN ×3 (14:27→22:30)
[2022-08-01] MEDS: Sodium Chloride 0.9% 1,000 ML IV SCH ×2 (14:30→20:09)
[2022-08-01] MEDS: Sertraline 100 MG TAB PO SCH (14:32)
[2022-08-01] MEDS: Gabapentin 300 MG CAP PO SCH ×2 (14:32→20:07)
[2022-08-01] MEDS: Vancomycin 1.5 GRAM/300 ML BAG 1.5 GM in Premix Bag 1 BAG IVPB SCH (17:44)
[2022-08-01] MEDS ORDERED: Vancomycin HCl 1.5 GM in Sodium Chloride 0.9% 250 ML 300 ML IVPB SCH (18:00)
[2022-08-01] MEDS ORDERED: QUEtiapine 25 MG TAB PO SCH ×2 (21:00)
[2022-08-02] MEDS: HYDROcodone/Acetaminophen 7.5/325 mg Tablet PO PRN ×2 (05:35→10:25)
[2022-08-02] MEDS: Vancomycin 1.5 GRAM/300 ML BAG 1.5 GM in Premix Bag 1 BAG IVPB SCH (05:35)
[2022-08-02] MEDS: Sodium Chloride 0.9% 1,000 ML IV SCH (09:07)
[2022-08-02 09:17] VITALS: TEMP 97.8
[2022-08-02] MEDS: Sertraline 100 MG TAB PO SCH (09:17)
[2022-08-02] MEDS: Gabapentin 300 MG CAP PO SCH (09:17)
[2022-08-02 11:05] VITALS: BP 142/83
== END 2022-08-02 11:00 | disposition home or self-care (01) | DRG 32 ==
LOC: SURG A 08-01 05:47
PROVIDERS: ADMIT Neurological Surgery; ATTEND Neurological Surgery
PROC: 00164J6 Bypass Cerebral Ventricle to Peritoneal Cavity with Synthetic Substitute, Percutaneous Endoscopic Approach (ICD-10-PCS; principal; 2022-08-01)
PROC: 0WJG4ZZ Inspection of Peritoneal Cavity, Percutaneous Endoscopic Approach (ICD-10-PCS; 2022-08-01)
DX: G91.0 Communicating hydrocephalus (principal); Z68.41 Body mass index [BMI] 40.0-44.9, adult; E66.01 Morbid (severe) obesity due to excess calories; F41.9 Anxiety disorder, unspecified; M19.90 Unspecified osteoarthritis, unspecified site; J45.909 Unspecified asthma, uncomplicated; G89.29 Other chronic pain; F32.A Depression, unspecified; I10 Essential (primary) hypertension; Z90.710 Acquired absence of both cervix and uterus; Z90.49 Acquired absence of other specified parts of digestive tract; Z83.3 Family history of diabetes mellitus; Z82.49 Family history of ischemic heart disease and other diseases of the circulatory system; Z82.3 Family history of stroke; Z87.891 Personal history of nicotine dependence; Z79.899 Other long term (current) drug therapy; Z88.1 Allergy status to other antibiotic agents; Z88.8 Allergy status to other drugs, medicaments and biological substances; Z86.73 Personal history of transient ischemic attack (TIA), and cerebral infarction without residual deficits
CPT/HCPCS: C1750; C1889; J0171; J1100; J1170; J2001; J2250; J2405; J2704; J3010; J3370; J3370-JW; J3490; J7050